=== PATIENT | female | born 1980 | race African-American/Black ===

== ENCOUNTER 2018-09-21 18:22 | Inpatient (IN) ==
[2018-09-21 19:08] LABS: Basophils # 0.1 10*3/uL (0.0-0.2); Basophils % 0.5 % (0.0-0.8); Eosinophils # 0.4 10*3/uL (0.0-0.87); Eosinophils % 2.9 % (0.00-10.9); Hematocrit 37.1 VOL% (35.7-47.0); Hemoglobin 11.7 GM/DL (12.0-16.0); Immature Granulocytes % 0.6 %; Immature Granulocytes Absolute 0.08 #; Lymphocytes # 1.6 10*3/uL (1.4-4.0); Lymphocytes % 12.9 % (21.3-54.2); Mean Corpuscular HGB Conc 31.5 GM/DL (32-36); Mean Corpuscular Volume 93.9 FL (87-102); Mean Platelet Volume 10.9 FL (9.6-12.0); Monocytes % 16.2 % (1.7-12.7); Neutrophils % 66.9 % (38.7-73.9); Platelet Count 267 T/CUMM (130-400); Red Blood Count 3.95 MC/CUMM (3.8-5.5); White Blood Count 12.5 T/CUMM (4-12)
[2018-09-21] MEDS ORDERED: ONDANSETRON 4 MG/2 ML VIAL IV STA (19:08)
[2018-09-21] MEDS ORDERED: MORPHINE 4 MG/1 ML VIAL IV STA (19:08)
[2018-09-21 19:26] LABS: Bilirubin,Total 0.5 MG/DL (0.2-1.0); Calcium 9.5 MG/DL (8.5-10.1); Osmolality,Calculated 265.5 MOS/KG (273-304); Total Protein 8.6 G/DL (6.4-8.3)
[2018-09-21 19:42] LABS: Eosinophils 3 % (0-10); Lymphocytes 15 % (20-55); Segmented Neutrophils 69 % (50-85); Total Cells Counted 100
[2018-09-21 19:43] LABS: Anisocytosis 1+; Atypical Lymphocytes Few; Macrocytosis 1+; Microcytosis Slight; Platelet Estimate Normal; Polychromasia 1+
[2018-09-21] MEDS ORDERED: ONDANSETRON 4 MG/2 ML VIAL IV PRN (20:39)
[2018-09-21] MEDS ORDERED: DEXTROSE 50% 25 GM/50 ML VIAL IV PRN (20:39)
[2018-09-21] MEDS ORDERED: GLUCAGON 1 MG VIAL IM PRN (20:39)
[2018-09-21] MEDS: MORPHINE 4 MG/1 ML VIAL IV PRN (22:10)
[2018-09-21] MEDS: LABETALOL 200 MG TABLET PO SCH (22:13)
[2018-09-21] MEDS: APIXABAN 5 MG TABLET PO SCH (22:13)
[2018-09-21] MEDS: CYCLOBENZAPRINE 10 MG TABLET PO PRN (22:13)
[2018-09-21] MEDS: INSULIN REGULAR 100 UNIT/ML SUBCUT SCH (22:21)
[2018-09-22] MEDS: MORPHINE 4 MG/1 ML VIAL IV PRN ×5 (02:15→23:39)
[2018-09-22] MEDS: LEVOTHYROXINE 100 MCG TABLET PO SCH (05:06)
[2018-09-22 05:43] LABS: Basophils # 0.1 10*3/uL (0.0-0.2); Basophils % 0.4 % (0.0-0.8); Eosinophils # 0.4 10*3/uL (0.0-0.87); Eosinophils % 3.4 % (0.00-10.9); Hematocrit 33.7 VOL% (35.7-47.0); Hemoglobin 10.6 GM/DL (12.0-16.0); Immature Granulocytes % 0.6 %; Immature Granulocytes Absolute 0.08 #; Lymphocytes # 1.7 10*3/uL (1.4-4.0); Lymphocytes % 13.7 % (21.3-54.2); Mean Corpuscular HGB Conc 31.5 GM/DL (32-36); Mean Corpuscular Volume 93.4 FL (87-102); Mean Platelet Volume 11.3 FL (9.6-12.0); Monocytes % 17.2 % (1.7-12.7); Neutrophils % 64.7 % (38.7-73.9); Platelet Count 234 T/CUMM (130-400); Red Blood Count 3.61 MC/CUMM (3.8-5.5); Red Cell Distribution Width 14.1 % (9.3-17.3); White Blood Count 12.5 T/CUMM (4-12)
[2018-09-22 05:55] LABS: Alanine Aminotransferase < 9 U/L (13-56); Albumin 2.8 G/DL (3.4-5.0); Alkaline Phosphatase 146 U/L (45-117); Aspartate Amino Transferase 14 U/L (0-37); Blood Urea Nitrogen 5 MG/DL (7-18); Calcium 9.4 MG/DL (8.5-10.1); Glucose 148 MG/DL (74-106); Osmolality,Calculated 267.2 MOS/KG (273-304); Total Protein 7.7 G/DL (6.4-8.3)
[2018-09-22 06:54] LABS: Band Neutrophils 1 % (0-10); Eosinophils 2 % (0-10); Hypochromasia 2+; Lymphocytes 12 % (20-55); Platelet Estimate Normal; Segmented Neutrophils 67 % (50-85); Total Cells Counted 100
[2018-09-22] MEDS: INSULIN REGULAR 100 UNIT/ML SUBCUT SCH ×4 (09:16→20:56)
[2018-09-22] MEDS: PANTOPRAZOLE 40 MG TABLET PO SCH (09:16)
[2018-09-22] MEDS: APIXABAN 5 MG TABLET PO SCH ×2 (09:16→20:50)
[2018-09-22] MEDS: LABETALOL 200 MG TABLET PO SCH ×2 (09:16→20:50)
[2018-09-22] MEDS: cefTRIAXone 2,000 MG in SYRINGE 1 EACH IV SCH (14:10)
[2018-09-22] MEDS: AZITHROMYCIN 250 MG TABLET PO SCH (14:10)
[2018-09-23 05:42] LABS: Basophils % 0.2 % (0.0-0.8); Eosinophils # 0.3 10*3/uL (0.0-0.87); Eosinophils % 1.9 % (0.00-10.9); Hematocrit 31.8 VOL% (35.7-47.0); Hemoglobin 10.1 GM/DL (12.0-16.0); Immature Granulocytes % 0.7 %; Immature Granulocytes Absolute 0.09 #; Lymphocytes % 7.2 % (21.3-54.2); Mean Corpuscular HGB Conc 31.8 GM/DL (32-36); Mean Corpuscular Volume 93.3 FL (87-102); Mean Platelet Volume 11.6 FL (9.6-12.0); Monocytes % 17.8 % (1.7-12.7); Neutrophils % 72.2 % (38.7-73.9); Platelet Count 232 T/CUMM (130-400); Red Blood Count 3.41 MC/CUMM (3.8-5.5); Red Cell Distribution Width 14.1 % (9.3-17.3); White Blood Count 13.2 T/CUMM (4-12)
[2018-09-23 05:43] LABS: Basophils # 0.1 10*3/uL (0.0-0.2); Basophils % 0.4 % (0.0-0.8); Eosinophils # 0.3 10*3/uL (0.0-0.87); Hematocrit 32.2 VOL% (35.7-47.0); Hemoglobin 9.9 GM/DL (12.0-16.0); Immature Granulocytes % 0.6 %; Immature Granulocytes Absolute 0.08 #; Lymphocytes % 7.3 % (21.3-54.2); Mean Corpuscular HGB Conc 30.7 GM/DL (32-36); Mean Corpuscular Volume 95.3 FL (87-102); Mean Platelet Volume 11.3 FL (9.6-12.0); Monocytes % 17.5 % (1.7-12.7); Neutrophils % 72.2 % (38.7-73.9); Platelet Count 225 T/CUMM (130-400); Red Blood Count 3.38 MC/CUMM (3.8-5.5); White Blood Count 13.2 T/CUMM (4-12)
[2018-09-23 06:13] LABS: % Iron Saturation 16.1 % (18-50); Ferritin 366.6 ng/ml (8-252)
[2018-09-23 06:17] LABS: Band Neutrophils 1 % (0-10); Eosinophils 1 % (0-10); Lymphocytes 5 % (20-55); Platelet Estimate Normal; Segmented Neutrophils 74 % (50-85); Total Cells Counted 100
[2018-09-23 06:19] LABS: Eosinophils 4 % (0-10); Hypochromasia Slight; Lymphocytes 8 % (20-55); Platelet Estimate Normal; Segmented Neutrophils 72 % (50-85); Total Cells Counted 100
[2018-09-23 06:24] LABS: Calcium 9.1 MG/DL (8.5-10.1); Osmolality,Calculated 263.5 MOS/KG (273-304)
[2018-09-23] MEDS: LEVOTHYROXINE 100 MCG TABLET PO SCH (06:50)
[2018-09-23 06:59] LABS: Sedimentation Rate-Westergren 110 MM/HR (0-20)
[2018-09-23] MEDS: APIXABAN 5 MG TABLET PO SCH ×2 (08:41→21:58)
[2018-09-23] MEDS: PANTOPRAZOLE 40 MG TABLET PO SCH (08:41)
[2018-09-23] MEDS: LABETALOL 200 MG TABLET PO SCH ×2 (08:41→21:58)
[2018-09-23] MEDS: INSULIN REGULAR 100 UNIT/ML SUBCUT SCH ×4 (08:42→22:12)
[2018-09-23] MEDS: AZITHROMYCIN 250 MG TABLET PO SCH (08:42)
[2018-09-23] MEDS: CYCLOBENZAPRINE 10 MG TABLET PO PRN (08:44)
[2018-09-23 12:03] LABS: Folate 5.7 NG/ML (5.4-24.0); Vitamin B12 416 PG/ML (211-911)
[2018-09-23] MEDS: cefTRIAXone 2,000 MG in SYRINGE 1 EACH IV SCH (14:33)
[2018-09-24] MEDS: LEVOTHYROXINE 100 MCG TABLET PO SCH (05:10)
[2018-09-24 06:24] LABS: Basophils # 0.1 10*3/uL (0.0-0.2); Basophils % 0.4 % (0.0-0.8); Eosinophils # 0.4 10*3/uL (0.0-0.87); Eosinophils % 3.2 % (0.00-10.9); Hematocrit 30.2 VOL% (35.7-47.0); Hemoglobin 9.5 GM/DL (12.0-16.0); Immature Granulocytes % 0.7 %; Immature Granulocytes Absolute 0.08 #; Lymphocytes # 0.9 10*3/uL (1.4-4.0); Lymphocytes % 7.4 % (21.3-54.2); Mean Corpuscular HGB Conc 31.5 GM/DL (32-36); Mean Corpuscular Volume 93.2 FL (87-102); Mean Platelet Volume 11.7 FL (9.6-12.0); Monocytes % 15.7 % (1.7-12.7); Neutrophils % 72.6 % (38.7-73.9); Platelet Count 227 T/CUMM (130-400); Red Blood Count 3.24 MC/CUMM (3.8-5.5); Red Cell Distribution Width 14.1 % (9.3-17.3); White Blood Count 12.3 T/CUMM (4-12)
[2018-09-24 08:27] LABS: Folate 7.1 NG/ML (5.4-24.0); Vitamin B12 361 PG/ML (211-911)
[2018-09-24 08:51] LABS: Sedimentation Rate-Westergren 115 MM/HR (0-20)
[2018-09-24] MEDS: LABETALOL 200 MG TABLET PO SCH (09:15)
[2018-09-24] MEDS: INSULIN REGULAR 100 UNIT/ML SUBCUT SCH ×4 (09:15→21:56)
[2018-09-24] MEDS: PANTOPRAZOLE 40 MG TABLET PO SCH (09:15)
[2018-09-24] MEDS: APIXABAN 5 MG TABLET PO SCH ×2 (09:16→20:33)
[2018-09-24] MEDS: AZITHROMYCIN 250 MG TABLET PO SCH (09:16)
[2018-09-24 09:56] LABS: Band Neutrophils 1 % (0-10); Eosinophils 3 % (0-10); Lymphocytes 8 % (20-55); Segmented Neutrophils 76 % (50-85); Total Cells Counted 100
[2018-09-24 10:01] LABS: Hypochromasia Slight; Platelet Estimate Normal; Polychromasia Slight
[2018-09-24 10:38] LABS: Amylase 15 U/L (25-115)
[2018-09-24] MEDS: cefTRIAXone 2,000 MG in SYRINGE 1 EACH IV SCH (14:17)
[2018-09-24] MEDS: ACETAMINOPHEN 325 MG TABLET PO PRN (15:23)
[2018-09-24] MEDS: PIPERACILLIN/TAZOBACTAM 3,375 MG in SODIUM CHLORIDE 0.9% 100 ML IV SCH (17:48)
[2018-09-24] MEDS: VANCOMYCIN INJ 750 MG in SODIUM CHLORIDE 0.9% 250 ML IV SCH (22:05)
[2018-09-25 01:01] LABS: Apearance,Urine CLEAR (Clear); Bilirubin,Urine Negative (Negative); Blood, Urine Large mg/dL (Negative); Glucose,Urine (UA) 150 mg/dL (Negative); Ketones,Urine 5 mg/dL (Negative); Nitrite,Urine Negative (Negative); Protein,Urine 30 MG/DL; RBC,Urine 1724 /HPF (0-4); Urine Color Red (Yellow); Urine Specific Gravity 1.015 (1.001-1.035); Urine Urobilinogen < 2.0 EU/DL (0.2-1.0); WBC,Urine 12 /HPF (0-6)
[2018-09-25] MEDS: PIPERACILLIN/TAZOBACTAM 3,375 MG in SODIUM CHLORIDE 0.9% 100 ML IV SCH ×3 (02:00→17:24)
[2018-09-25] MEDS: LEVOTHYROXINE 100 MCG TABLET PO SCH (05:21)
[2018-09-25 05:22] LABS: Basophils % 0.3 % (0.0-0.8); Eosinophils # 0.4 10*3/uL (0.0-0.87); Eosinophils % 3.9 % (0.00-10.9); Hematocrit 27.9 VOL% (35.7-47.0); Hemoglobin 9.1 GM/DL (12.0-16.0); Immature Granulocytes % 0.4 %; Immature Granulocytes Absolute 0.05 #; Lymphocytes # 1.1 10*3/uL (1.4-4.0); Lymphocytes % 10.2 % (21.3-54.2); Mean Corpuscular HGB Conc 32.6 GM/DL (32-36); Mean Corpuscular Volume 91.5 FL (87-102); Mean Platelet Volume 11.6 FL (9.6-12.0); Neutrophils % 69.2 % (38.7-73.9); Platelet Count 266 T/CUMM (130-400); Red Blood Count 3.05 MC/CUMM (3.8-5.5); White Blood Count 11.1 T/CUMM (4-12)
[2018-09-25] MEDS: VANCOMYCIN INJ 750 MG in SODIUM CHLORIDE 0.9% 250 ML IV SCH ×3 (05:22→21:39)
[2018-09-25 05:57] LABS: Anisocytosis 1+; Band Neutrophils 2 % (0-10); Eosinophils 3 % (0-10); Hypochromasia 1+; Lymphocytes 7 % (20-55); Microcytosis 1+; Platelet Estimate Adequate; Segmented Neutrophils 81 % (50-85); Total Cells Counted 100
[2018-09-25] MEDS: INSULIN REGULAR 100 UNIT/ML SUBCUT SCH ×4 (07:46→21:38)
[2018-09-25] MEDS: APIXABAN 5 MG TABLET PO SCH ×2 (08:33→21:38)
[2018-09-25] MEDS: AZITHROMYCIN 250 MG TABLET PO SCH (08:33)
[2018-09-25] MEDS: PANTOPRAZOLE 40 MG TABLET PO SCH (08:33)
[2018-09-25] MEDS: MORPHINE 4 MG/1 ML VIAL IV PRN (19:35)
[2018-09-26] MEDS: PIPERACILLIN/TAZOBACTAM 3,375 MG in SODIUM CHLORIDE 0.9% 100 ML IV SCH ×3 (01:06→17:36)
[2018-09-26 05:41] LABS: Basophils # 0.1 10*3/uL (0.0-0.2); Basophils % 0.6 % (0.0-0.8); Eosinophils # 0.6 10*3/uL (0.0-0.87); Eosinophils % 6.1 % (0.00-10.9); Hematocrit 27.2 VOL% (35.7-47.0); Hemoglobin 8.7 GM/DL (12.0-16.0); Immature Granulocytes % 0.6 %; Immature Granulocytes Absolute 0.06 #; Lymphocytes # 1.3 10*3/uL (1.4-4.0); Lymphocytes % 13.7 % (21.3-54.2); Mean Corpuscular Volume 91.9 FL (87-102); Mean Platelet Volume 11.1 FL (9.6-12.0); Monocytes % 15.2 % (1.7-12.7); Neutrophils % 63.8 % (38.7-73.9); Platelet Count 277 T/CUMM (130-400); Red Blood Count 2.96 MC/CUMM (3.8-5.5); Red Cell Distribution Width 13.8 % (9.3-17.3); White Blood Count 9.3 T/CUMM (4-12)
[2018-09-26] MEDS: LEVOTHYROXINE 100 MCG TABLET PO SCH (05:49)
[2018-09-26] MEDS ORDERED: VANCOMYCIN INJ 1,000 MG in SODIUM CHLORIDE 0.9% 250 ML IV ONE (06:00)
[2018-09-26] MEDS: MORPHINE 4 MG/1 ML VIAL IV PRN ×4 (06:32→23:25)
[2018-09-26] MEDS: INSULIN REGULAR 100 UNIT/ML SUBCUT SCH ×4 (08:00→20:51)
[2018-09-26] MEDS: PANTOPRAZOLE 40 MG TABLET PO SCH (10:46)
[2018-09-26] MEDS: AZITHROMYCIN 250 MG TABLET PO SCH (10:46)
[2018-09-26] MEDS: APIXABAN 5 MG TABLET PO SCH ×2 (10:46→20:56)
[2018-09-26] MEDS ORDERED: AZITHROMYCIN INJ 500 MG in SODIUM CHLORIDE 0.9% 250 ML IV SCH (12:00)
[2018-09-26] MEDS: VANCOMYCIN INJ 750 MG in SODIUM CHLORIDE 0.9% 250 ML IV SCH (19:15)
[2018-09-27] MEDS: PIPERACILLIN/TAZOBACTAM 3,375 MG in SODIUM CHLORIDE 0.9% 100 ML IV SCH ×3 (01:28→16:44)
[2018-09-27 05:06] LABS: Basophils # 0.1 10*3/uL (0.0-0.2); Basophils % 0.6 % (0.0-0.8); Eosinophils # 0.6 10*3/uL (0.0-0.87); Eosinophils % 6.9 % (0.00-10.9); Hematocrit 27.6 VOL% (35.7-47.0); Hemoglobin 8.5 GM/DL (12.0-16.0); Immature Granulocytes % 0.5 %; Immature Granulocytes Absolute 0.04 #; Lymphocytes # 1.6 10*3/uL (1.4-4.0); Lymphocytes % 19.2 % (21.3-54.2); Mean Corpuscular HGB Conc 30.8 GM/DL (32-36); Mean Corpuscular Volume 93.9 FL (87-102); Mean Platelet Volume 10.9 FL (9.6-12.0); Monocytes % 15.1 % (1.7-12.7); Neutrophils % 57.7 % (38.7-73.9); Platelet Count 306 T/CUMM (130-400); Red Blood Count 2.94 MC/CUMM (3.8-5.5); Red Cell Distribution Width 13.8 % (9.3-17.3); White Blood Count 8.6 T/CUMM (4-12)
[2018-09-27] MEDS: LEVOTHYROXINE 100 MCG TABLET PO SCH (05:07)
[2018-09-27] MEDS: VANCOMYCIN INJ 750 MG in SODIUM CHLORIDE 0.9% 250 ML IV SCH ×3 (05:07→20:53)
[2018-09-27] MEDS: INSULIN REGULAR 100 UNIT/ML SUBCUT SCH ×4 (07:49→19:59)
[2018-09-27] MEDS: APIXABAN 5 MG TABLET PO SCH ×2 (08:12→20:18)
[2018-09-27] MEDS: AZITHROMYCIN 250 MG TABLET PO SCH (08:12)
[2018-09-27] MEDS: PANTOPRAZOLE 40 MG TABLET PO SCH (08:12)
[2018-09-27] MEDS: MORPHINE 4 MG/1 ML VIAL IV PRN ×4 (08:23→22:55)
[2018-09-27 10:33] LABS: Hemoglobin A1 (Alkaline) 97.8 % (96.5-98.5); Hemoglobin A2 (Alkaline) 2.2 % (1.5-3.5)
[2018-09-27 10:33] LABS: Hemoglobin A1 (Alkaline) 97.8 % (96.5-98.5); Hemoglobin A2 (Alkaline) 2.2 % (1.5-3.5)
[2018-09-27] MEDS: ACETAMINOPHEN 325 MG TABLET PO PRN (20:18)
[2018-09-28] MEDS: PIPERACILLIN/TAZOBACTAM 3,375 MG in SODIUM CHLORIDE 0.9% 100 ML IV SCH ×3 (00:38→17:17)
[2018-09-28 05:05] LABS: Basophils # 0.1 10*3/uL (0.0-0.2); Basophils % 0.6 % (0.0-0.8); Eosinophils # 0.8 10*3/uL (0.0-0.87); Eosinophils % 8.7 % (0.00-10.9); Hematocrit 27.6 VOL% (35.7-47.0); Hemoglobin 8.5 GM/DL (12.0-16.0); Immature Granulocytes % 0.8 %; Immature Granulocytes Absolute 0.07 #; Lymphocytes # 1.4 10*3/uL (1.4-4.0); Lymphocytes % 15.7 % (21.3-54.2); Mean Corpuscular HGB Conc 30.8 GM/DL (32-36); Mean Corpuscular Volume 94.2 FL (87-102); Mean Platelet Volume 10.7 FL (9.6-12.0); Monocytes % 13.2 % (1.7-12.7); Platelet Count 330 T/CUMM (130-400); Red Blood Count 2.93 MC/CUMM (3.8-5.5); Red Cell Distribution Width 13.6 % (9.3-17.3); White Blood Count 8.6 T/CUMM (4-12)
[2018-09-28] MEDS: LEVOTHYROXINE 100 MCG TABLET PO SCH (05:26)
[2018-09-28] MEDS: VANCOMYCIN INJ 750 MG in SODIUM CHLORIDE 0.9% 250 ML IV SCH ×2 (05:26→12:27)
[2018-09-28 05:28] LABS: Blood Urea Nitrogen < 1 MG/DL (7-18); Calcium 8.9 MG/DL (8.5-10.1); Glucose 140 MG/DL (74-106); Osmolality,Calculated 278.6 MOS/KG (273-304)
[2018-09-28] MEDS: POTASSIUM CHLORIDE RIDER 10 MEQ in PREMIX 1 EACH IV SCH ×3 (07:53→12:26)
[2018-09-28] MEDS: INSULIN REGULAR 100 UNIT/ML SUBCUT SCH ×4 (07:57→20:49)
[2018-09-28] MEDS: PANTOPRAZOLE 40 MG TABLET PO SCH (07:59)
[2018-09-28] MEDS: AZITHROMYCIN 250 MG TABLET PO SCH (07:59)
[2018-09-28] MEDS: APIXABAN 5 MG TABLET PO SCH ×2 (07:59→20:48)
[2018-09-28] MEDS: MORPHINE 4 MG/1 ML VIAL IV PRN ×2 (09:47→20:50)
[2018-09-28] MEDS: POTASSIUM CHLORIDE 20 MEQ TABLET PO PRN ×3 (17:15→23:08)
[2018-09-29] MEDS: PIPERACILLIN/TAZOBACTAM 3,375 MG in SODIUM CHLORIDE 0.9% 100 ML IV SCH ×3 (00:39→16:55)
[2018-09-29] MEDS: POTASSIUM CHLORIDE 20 MEQ TABLET PO PRN ×2 (03:30→13:50)
[2018-09-29] MEDS: LEVOTHYROXINE 100 MCG TABLET PO SCH (05:21)
[2018-09-29 08:42] LABS: Basophils # 0.1 10*3/uL (0.0-0.2); Basophils % 0.5 % (0.0-0.8); Eosinophils # 0.6 10*3/uL (0.0-0.87); Eosinophils % 6.2 % (0.00-10.9); Hematocrit 29.5 VOL% (35.7-47.0); Hemoglobin 9.4 GM/DL (12.0-16.0); Immature Granulocytes % 0.6 %; Immature Granulocytes Absolute 0.06 #; Lymphocytes # 1.3 10*3/uL (1.4-4.0); Lymphocytes % 13.2 % (21.3-54.2); Mean Corpuscular HGB Conc 31.9 GM/DL (32-36); Mean Corpuscular Volume 93.7 FL (87-102); Mean Platelet Volume 10.7 FL (9.6-12.0); Monocytes % 10.7 % (1.7-12.7); Neutrophils % 68.8 % (38.7-73.9); Platelet Count 427 T/CUMM (130-400); Red Blood Count 3.15 MC/CUMM (3.8-5.5); Red Cell Distribution Width 13.7 % (9.3-17.3); White Blood Count 9.8 T/CUMM (4-12)
[2018-09-29] MEDS: APIXABAN 5 MG TABLET PO SCH ×2 (08:51→22:08)
[2018-09-29] MEDS: PANTOPRAZOLE 40 MG TABLET PO SCH (08:51)
[2018-09-29] MEDS: AZITHROMYCIN 250 MG TABLET PO SCH (08:51)
[2018-09-29 09:06] LABS: Alanine Aminotransferase 15 U/L (13-56); Albumin 2.2 G/DL (3.4-5.0); Alkaline Phosphatase 137 U/L (45-117); Aspartate Amino Transferase 16 U/L (0-37); Blood Urea Nitrogen < 1 MG/DL (7-18); Glucose 110 MG/DL (74-106); Osmolality,Calculated 275.8 MOS/KG (273-304); Total Protein 7.5 G/DL (6.4-8.3)
[2018-09-29] MEDS: CYCLOBENZAPRINE 10 MG TABLET PO PRN ×2 (09:16→22:07)
[2018-09-29] MEDS: INSULIN REGULAR 100 UNIT/ML SUBCUT SCH ×4 (09:34→22:09)
[2018-09-30] MEDS: PIPERACILLIN/TAZOBACTAM 3,375 MG in SODIUM CHLORIDE 0.9% 100 ML IV SCH ×2 (01:21→08:52)
[2018-09-30] MEDS: LEVOTHYROXINE 100 MCG TABLET PO SCH (05:22)
[2018-09-30] MEDS: INSULIN REGULAR 100 UNIT/ML SUBCUT SCH ×2 (07:32→11:14)
[2018-09-30 08:00] LABS: Basophils # 0.1 10*3/uL (0.0-0.2); Basophils % 0.5 % (0.0-0.8); Eosinophils # 0.6 10*3/uL (0.0-0.87); Eosinophils % 5.9 % (0.00-10.9); Hematocrit 28.4 VOL% (35.7-47.0); Hemoglobin 8.9 GM/DL (12.0-16.0); Immature Granulocytes % 0.9 %; Lymphocytes # 1.3 10*3/uL (1.4-4.0); Lymphocytes % 12.1 % (21.3-54.2); Mean Corpuscular HGB Conc 31.3 GM/DL (32-36); Mean Corpuscular Volume 93.1 FL (87-102); Mean Platelet Volume 10.9 FL (9.6-12.0); Monocytes % 10.5 % (1.7-12.7); Neutrophils % 70.1 % (38.7-73.9); Platelet Count 412 T/CUMM (130-400); Red Blood Count 3.05 MC/CUMM (3.8-5.5); Red Cell Distribution Width 13.8 % (9.3-17.3); White Blood Count 10.9 T/CUMM (4-12)
[2018-09-30 08:04] LABS: Alanine Aminotransferase 13 U/L (13-56); Albumin 2.4 G/DL (3.4-5.0); Alkaline Phosphatase 128 U/L (45-117); Aspartate Amino Transferase 13 U/L (0-37); Bilirubin,Total < 0.39 MG/DL (0.2-1.0); Blood Urea Nitrogen < 1 MG/DL (7-18); Calcium 9.3 MG/DL (8.5-10.1); Glucose 138 MG/DL (74-106); Osmolality,Calculated 274.9 MOS/KG (273-304); Total Protein 7.3 G/DL (6.4-8.3)
[2018-09-30] MEDS: PANTOPRAZOLE 40 MG TABLET PO SCH (08:53)
[2018-09-30] MEDS: APIXABAN 5 MG TABLET PO SCH (08:53)
[2018-09-30 15:26] LABS: Immunoglobulin A 549 MG/DL (70-400); Immunoglobulin G 1520 MG/DL (700-1600); Immunoglobulin M 179 MG/DL (40-230)
[2018-09-30 15:31] LABS: Parathyroid Hormone Intact 55.1 PG/ML (18.4-80.1)
[2018-09-30] MEDS: CYCLOBENZAPRINE 10 MG TABLET PO PRN (15:41)
[2018-09-30 17:01] LABS: DRVVT Screen Ratio 3.4 ratio (0.0 - 1.1); INR 2.3
[2018-09-30 17:10] VITALS: BP 130/90
[2018-10-01 06:05] LABS: Immunoglobulin A (Chem) 549 MG/DL (70-400); Immunoglobulin G (Chem) 1520 MG/DL (700-1600); Immunoglobulin M (Chem) 179 MG/DL (40-230)
[2018-10-01 06:12] LABS: Total Protein (Chem) 8.1 G/DL (6.4-8.3)
[2018-10-01 09:31] LABS: Albumin (SPE) 3.4 G/DL (3.2-5.3); Albumin (SPE) Rel % 42.5 %; Alpha 1 (SPE) 0.5 G/DL (0.1-0.4); Alpha 1 (SPE) Rel % 5.9 %; Alpha 2 (SPE) 1.4 G/DL (0.4-1.0); Alpha 2 (SPE) Rel % 17.8 %; Beta (SPE) 0.9 G/DL (0.5-1.1); Beta (SPE) Rel % 11.1 %; Gamma (SPE) 1.8 G/DL (0.7-1.7); Gamma (SPE) Rel % 22.7 %
[2018-10-14 10:19] LABS: DRVVT Mix Ratio (Mayo Reflex) 1.8 ratio (0.0 - 1.1); PT Mix 1:1 (Mayo Reflex) 16.3 sec; Reptilase Time, P 22 sec (14 - 23); Thrombin Time (Bovine), P 30 sec (15 - 23)
== END 2018-09-30 16:40 | disposition home or self-care (01) | DRG 175 ==
LOC: N.ED 18:22 → N.5E 20:39 → SUATTDRO 20:39 → N.5E 21:49
PROVIDERS: ADMIT Internal Medicine; ATTEND Internal Medicine

== ENCOUNTER 2020-02-01 16:22 | Inpatient (IN) ==
[2020-02-01 18:50] LABS: Basophils # 0.1 10*3/uL (0.0-0.2); Basophils % 0.2 % (0.0-0.8); Hematocrit 41.6 VOL% (35.7-47.0); Hemoglobin 14.2 GM/DL (12.0-16.0); Immature Granulocytes % 4.3 %; Immature Granulocytes Absolute 0.95 #; Lymphocytes # 0.8 10*3/uL (1.4-4.0); Lymphocytes % 3.8 % (21.3-54.2); Mean Corpuscular HGB Conc 34.1 GM/DL (32-36); Mean Platelet Volume 12.2 FL (9.6-12.0); Monocytes % 13.3 % (1.7-12.7); Neutrophils % 78.4 % (38.7-73.9); Platelet Count 364 T/CUMM (130-400); Red Blood Count 4.16 MC/CUMM (3.8-5.5); Red Cell Distribution Width 12.5 % (9.3-17.3); White Blood Count 22.1 T/CUMM (4-12)
[2020-02-01] MEDS ORDERED: LEVOFLOXACIN INJ 500 MG in PREMIX 1 EACH IV STA (19:11)
[2020-02-01] MEDS ORDERED: SODIUM CHLORIDE 0.9% 1,500 ML IV STA (19:11)
[2020-02-01 19:13] LABS: Band Neutrophils 11 % (0-10); Lymphocytes 2 % (20-55); Metamyelocytes 1 %; Segmented Neutrophils 74 % (50-85); Total Cells Counted 100
[2020-02-01 19:14] LABS: Platelet Estimate Adequate
[2020-02-01 19:22] LABS: Albumin 2.4 G/DL (3.4-5.0); Bilirubin,Total 1.3 MG/DL (0.2-1.0); Calcium 10.7 MG/DL (8.5-10.1); Osmolality,Calculated 269.2 MOS/KG (273-304); Total Protein 9.5 G/DL (6.4-8.3)
[2020-02-01 19:32] LABS: Ferritin 875.2 ng/ml (8-252)
[2020-02-01] MEDS ORDERED: ONDANSETRON 4 MG/2 ML VIAL IV STA (19:40)
[2020-02-01 20:24] LABS: ABG Base Excess -16.4 MMOL/L (-2.5-2.5); ABG HCO3 12.4 MMOL/L (20-26); ABG Oxygen Saturation 98.1 % (95-100); ABG PH 7.375 (7.35-7.45); ABG TCO2 6.3 MMOL/L (23-27); Allen Test Positive; Pt O2 Delivery Device Room Air
[2020-02-01 20:26] LABS: ABG PCO2 12.3 MM HG (35-48)
[2020-02-01] MEDS ORDERED: DEXT 5% NACL 0.45% KCL 40 MEQ 40 MEQ/1,000 ML BAG IV SCH (20:30)
[2020-02-01 21:46] LABS: Bacteria,Urine Occasional /HPF (Few); Bilirubin,Urine Negative (Negative); Blood, Urine Small mg/dL (Negative); Glucose,Urine (UA) >=500 mg/dL (Negative); Ketones,Urine 80 mg/dL (Negative); Mucus,Urine Occasional /LPF (Occasional); Nitrite,Urine Negative (Negative); Protein,Urine Negative; RBC,Urine 1 /HPF (0-4); Squamous Epithelial Cell,Urine Occasional /HPF (0-10); Urine Appearance Slightly Hazy (Clear); Urine Color Yellow (Yellow); Urine Urobilinogen < 2.0 EU/DL (0.2-1.0)
[2020-02-01 21:48] LABS: Barbiturates Screen,Urine Negative (Negative); Benzodiazepines Screen,Urine Negative (Negative); Cannabinoid Screen,Urine Negative (Negative); Opiate Screen,Urine Negative (Negative); Phencyclidine Screen,Urine Negative (Negative)
[2020-02-02] MEDS ORDERED: NICOTINE 21 MG/24 HR PATCH TRANSDERM PRN (03:05)
[2020-02-02] MEDS ORDERED: INSULIN REGULAR 100 UNIT/ML IV ONE (03:05)
[2020-02-02] MEDS ORDERED: SODIUM BICARB INJ 100 MEQ in STERILE WATER INJ 400 ML IV PRN (03:05)
[2020-02-02] MEDS ORDERED: SODIUM CHLORIDE 0.9% IV PRN (03:05)
[2020-02-02] MEDS ORDERED: ALBUTEROL 2.5 MG/3 ML NEB RESP TX PRN ×2 (03:05→06:00)
[2020-02-02] MEDS ORDERED: hydrALAZINE 20 MG/1 ML VIAL IV PRN (03:05)
[2020-02-02] MEDS ORDERED: MAGNESIUM SULF RIDER 4 GM in PREMIX 1 EACH IV PRN (03:05)
[2020-02-02] MEDS ORDERED: SODIUM CHLORIDE 0.9% 1,000 ML IV ONE (03:05)
[2020-02-02] MEDS ORDERED: SODIUM PHOSPHATE IV PRN (03:05)
[2020-02-02] MEDS ORDERED: DEXTROSE 50% 25 GM/50 ML VIAL IV PRN ×2 (03:05→23:18)
[2020-02-02 03:21] LABS: ABG Base Excess -18.8 MMOL/L (-2.5-2.5); ABG HCO3 10.9 MMOL/L (20-26); ABG Oxygen Saturation 98.1 % (95-100); ABG PH 7.289 (7.35-7.45); ABG TCO2 5.9 MMOL/L (23-27); Allen Test Positive
[2020-02-02] MEDS ORDERED: INSULIN NPH 100 UNIT/ML SUBCUT ONE (03:26)
[2020-02-02] MEDS ORDERED: INSULIN REGULAR 100 UNIT/ML ONE (03:28)
[2020-02-02 03:29] LABS: ABG PCO2 13.7 MM HG (35-48)
[2020-02-02] MEDS: MEROPENEM 500 MG in SODIUM CHLORIDE 0.9% 100 ML IV SCH ×4 (03:38→22:26)
[2020-02-02] MEDS: MORPHINE 4 MG/1 ML VIAL IV PRN ×2 (04:26→10:24)
[2020-02-02] MEDS: ONDANSETRON 4 MG/2 ML VIAL IV PRN ×3 (04:27→22:15)
[2020-02-02] MEDS ORDERED: POTASSIUM CHLORIDE 20 MEQ TABLET PO ONE ×2 (04:41→07:19)
[2020-02-02] MEDS: VANCOMYCIN INJ 1,000 MG in SODIUM CHLORIDE 0.9% 250 ML IV SCH ×2 (04:52→16:18)
[2020-02-02] MEDS: INSULIN REGULAR DRIP 100 ML IV SCH ×2 (04:52→16:37)
[2020-02-02 05:22] LABS: Bacteria,Urine Occasional /HPF (Few); Bilirubin,Urine Negative (Negative); Blood, Urine Small mg/dL (Negative); Glucose,Urine (UA) >=500 mg/dL (Negative); Ketones,Urine 80 mg/dL (Negative); Mucus,Urine Occasional /LPF (Occasional); Nitrite,Urine Negative (Negative); Protein,Urine Negative; Squamous Epithelial Cell,Urine Occasional /HPF (0-10); Urine Appearance Slightly Hazy (Clear); Urine Color Yellow (Yellow); Urine Urobilinogen < 2.0 EU/DL (0.2-1.0)
[2020-02-02 05:36] LABS: Basophils % 0.2 % (0.0-0.8); Hematocrit 33.2 VOL% (35.7-47.0); Hemoglobin 11.2 GM/DL (12.0-16.0); Immature Granulocytes % 1.3 %; Immature Granulocytes Absolute 0.28 #; Lymphocytes # 0.7 10*3/uL (1.4-4.0); Lymphocytes % 3.1 % (21.3-54.2); Mean Corpuscular HGB Conc 33.7 GM/DL (32-36); Mean Corpuscular Volume 100.3 FL (87-102); Mean Platelet Volume 12.2 FL (9.6-12.0); Monocytes % 8.5 % (1.7-12.7); Neutrophils % 86.9 % (38.7-73.9); Platelet Count 313 T/CUMM (130-400); Red Blood Count 3.31 MC/CUMM (3.8-5.5); Red Cell Distribution Width 12.5 % (9.3-17.3); White Blood Count 21.8 T/CUMM (4-12)
[2020-02-02] MEDS ORDERED: LACTATED RINGERS 1,000 ML IV ONE (06:00)
[2020-02-02 06:06] LABS: Band Neutrophils 14 % (0-10); Hypochromasia Slight; Lymphocytes 4 % (20-55); Myelocytes 1 %; Platelet Estimate Adequate; Segmented Neutrophils 77 % (50-85); Total Cells Counted 100
[2020-02-02 06:40] LABS: HIV Antigen/Antibody Result Nonreactive (Nonreactive); Hepatitis B Core IgM Quant 0.11 Index; Hepatitis B Surface Ag Quant < 0.10 Index; Hepatitis B Surface Ag Result Negative (Negative); Hepatitis C Virus Ab Quant 0.07 Index; Hepatitis C Virus Ab Result Negative (Negative)
[2020-02-02] MEDS: SODIUM CHLORIDE 0.9% 1,000 ML IV SCH ×2 (06:51→08:51)
[2020-02-02 07:01] LABS: Albumin 1.9 G/DL (3.4-5.0); Calcium 8.8 MG/DL (8.5-10.1); Osmolality,Calculated 289.4 MOS/KG (273-304); Total Protein 7.6 G/DL (6.4-8.3)
[2020-02-02] MEDS: POTASSIUM CHLORIDE RIDER 10 MEQ in PREMIX 1 EACH IV PRN ×2 (07:17→08:10)
[2020-02-02] MEDS ORDERED: SODIUM CHLORIDE 0.9% 1,000 ML IV SCH (08:10)
[2020-02-02] MEDS ORDERED: MAGNESIUM SULF RIDER 4 GM in PREMIX 1 EACH IV ONE (08:45)
[2020-02-02] MEDS ORDERED: ENOXAPARIN 40 MG/0.4 ML SYRINGE SUBCUT SCH (09:00)
[2020-02-02] MEDS ORDERED: POTASSIUM PHOSPHATE 30 MMOL in SODIUM CHLORIDE 0.9% 250 ML IV ONE (09:00)
[2020-02-02] MEDS: DEXT 5% NACL 0.9% KCL 40 MEQ 40 MEQ/1,000 ML BAG IV SCH ×2 (09:10→12:42)
[2020-02-02] MEDS: POTASSIUM CHLORIDE RIDER 20 MEQ in PREMIX 1 EACH IV SCH ×7 (09:10→22:28)
[2020-02-02 10:40] LABS: Calcium 6.8 MG/DL (8.5-10.1)
[2020-02-02 11:16] LABS: Calcium 8.9 MG/DL (8.5-10.1); Osmolality,Calculated 296.7 MOS/KG (273-304)
[2020-02-02] MEDS ORDERED: SODIUM CHLOR 0.45% KCL 20 MEQ 20 MEQ/1,000 ML BAG IV SCH (12:00)
[2020-02-02 12:52] LABS: Calcium 8.8 MG/DL (8.5-10.1); Osmolality,Calculated 302.4 MOS/KG (273-304)
[2020-02-02] MEDS ORDERED: POTASSIUM CHLORIDE INJ 40 MEQ in SODIUM CHLORIDE 0.45% 1,000 ML IV SCH (13:00)
[2020-02-02] MEDS ORDERED: DEXT 5% NACL 0.9% KCL 40 MEQ 40 MEQ/1,000 ML BAG IV SCH (13:09)
[2020-02-02] MEDS ORDERED: DEXT 5% NACL 0.45% KCL 40 MEQ 40 MEQ/1,000 ML BAG IV SCH (13:30)
[2020-02-02 15:31] LABS: Calcium 9.1 MG/DL (8.5-10.1); Osmolality,Calculated 303.1 MOS/KG (273-304)
[2020-02-02 16:58] LABS: Calcium 9.2 MG/DL (8.5-10.1); Osmolality,Calculated 302.7 MOS/KG (273-304)
[2020-02-02 19:01] LABS: Calcium 9.2 MG/DL (8.5-10.1); Osmolality,Calculated 297.7 MOS/KG (273-304)
[2020-02-02] MEDS ORDERED: SODIUM CHLORIDE 0.45% 1,000 ML IV SCH (20:10)
[2020-02-02] MEDS ORDERED: GLUCAGON 1 MG VIAL IM PRN (23:18)
[2020-02-02] MEDS: DEXT 5% NACL 0.45% KCL 40 MEQ 40 MEQ/1,000 ML BAG IV SCH (23:24)
[2020-02-02] MEDS: INSULIN REGULAR 100 UNIT/ML SUBCUT SCH (23:28)
[2020-02-03] MEDS: MEROPENEM 500 MG in SODIUM CHLORIDE 0.9% 100 ML IV SCH ×4 (04:29→20:03)
[2020-02-03] MEDS: INSULIN REGULAR 100 UNIT/ML SUBCUT SCH ×5 (04:37→19:43)
[2020-02-03 04:44] LABS: Calcium 8.8 MG/DL (8.5-10.1); Osmolality,Calculated 306.1 MOS/KG (273-304)
[2020-02-03] MEDS: VANCOMYCIN INJ 1,000 MG in SODIUM CHLORIDE 0.9% 250 ML IV SCH ×2 (05:04→15:39)
[2020-02-03] MEDS: POTASSIUM CHLORIDE RIDER 20 MEQ in PREMIX 1 EACH IV PRN ×3 (05:42→20:27)
[2020-02-03] MEDS: DEXT 5% NACL 0.45% KCL 40 MEQ 40 MEQ/1,000 ML BAG IV SCH (08:30)
[2020-02-03] MEDS ORDERED: MIDAZOLAM 2 MG/2 ML VIAL ONE (09:54)
[2020-02-03] MEDS ORDERED: fentaNYL 100 MCG/2 ML VIAL ONE (09:54)
[2020-02-03] MEDS ORDERED: ACETAMINOPHEN 1,000 MG/100 ML VIAL IV ONE (10:11)
[2020-02-03] MEDS ORDERED: propofoL 200 MG/20 ML VIAL IV ONE (10:12)
[2020-02-03] MEDS ORDERED: ONDANSETRON 4 MG/2 ML VIAL ONE (10:12)
[2020-02-03] MEDS ORDERED: ROCURONIUM 100 MG/10 ML VIAL IV ONE (10:12)
[2020-02-03] MEDS ORDERED: LIDOCAINE 2% 5 ML VIAL ONE (10:12)
[2020-02-03] MEDS ORDERED: DEXAMETHASONE 4 MG/1 ML VIAL ONE (10:12)
[2020-02-03] MEDS ORDERED: KETOROLAC 30 MG/1 ML VIAL ONE (10:12)
[2020-02-03] MEDS ORDERED: SUGAMMADEX 200 MG/2 ML VIAL IV ONE (11:19)
[2020-02-03 12:24] LABS: Basophils % 0.1 % (0.0-0.8); Hematocrit 31.9 VOL% (35.7-47.0); Hemoglobin 11.1 GM/DL (12.0-16.0); Immature Granulocytes Absolute 1.62 #; Lymphocytes # 1.2 10*3/uL (1.4-4.0); Lymphocytes % 3.6 % (21.3-54.2); Mean Corpuscular HGB Conc 34.8 GM/DL (32-36); Mean Corpuscular Volume 96.7 FL (87-102); Mean Platelet Volume 11.9 FL (9.6-12.0); Monocytes % 7.1 % (1.7-12.7); Neutrophils % 84.2 % (38.7-73.9); Platelet Count 283 T/CUMM (130-400); Red Cell Distribution Width 12.8 % (9.3-17.3); White Blood Count 32.3 T/CUMM (4-12)
[2020-02-03] MEDS ORDERED: PHENYLEPHRINE 10 MG/1 ML VIAL IV ONE (12:42)
[2020-02-03] MEDS ORDERED: SEVOFLURANE 1 UNIT/15 MINUTE INH ONE (12:42)
[2020-02-03] MEDS: POTASSIUM CHLORIDE INJ 40 MEQ in SODIUM CHLORIDE 0.45% 1,000 ML IV SCH ×2 (13:00→21:56)
[2020-02-03] MEDS: oxyCODONE/ACETAMINOPHEN 5-325 MG TABLET PO PRN (13:03)
[2020-02-03 13:08] LABS: Anisocytosis 1+; Band Neutrophils 53 % (0-10); Lymphocytes 5 % (20-55); Metamyelocytes 4 %; Platelet Estimate Normal; Segmented Neutrophils 34 % (50-85); Total Cells Counted 100
[2020-02-03 13:09] LABS: Macrocytosis 1+
[2020-02-03] MEDS: KETOROLAC 10 MG TABLET PO SCH ×3 (13:11→19:43)
[2020-02-03 13:31] LABS: Calcium 8.9 MG/DL (8.5-10.1); Osmolality,Calculated 302.1 MOS/KG (273-304)
[2020-02-03] MEDS: MAGNESIUM SULF RIDER 2 GM in PREMIX 1 EACH IV PRN (15:10)
[2020-02-03] MEDS: MORPHINE 4 MG/1 ML VIAL IV PRN ×2 (15:39→21:22)
[2020-02-03] MEDS: ONDANSETRON 4 MG/2 ML VIAL IV PRN (21:22)
[2020-02-04] MEDS: POTASSIUM CHLORIDE RIDER 20 MEQ in PREMIX 1 EACH IV PRN ×2 (00:12→05:04)
[2020-02-04] MEDS: KETOROLAC 10 MG TABLET PO SCH ×4 (00:15→18:26)
[2020-02-04] MEDS: INSULIN REGULAR 100 UNIT/ML SUBCUT SCH ×5 (00:15→17:05)
[2020-02-04] MEDS: MEROPENEM 500 MG in SODIUM CHLORIDE 0.9% 100 ML IV SCH ×4 (03:34→21:35)
[2020-02-04] MEDS: VANCOMYCIN INJ 1,000 MG in SODIUM CHLORIDE 0.9% 250 ML IV SCH ×3 (04:56→21:35)
[2020-02-04] MEDS: POTASSIUM CHLORIDE INJ 40 MEQ in SODIUM CHLORIDE 0.45% 1,000 ML IV SCH ×3 (06:01→22:48)
[2020-02-04] MEDS: MORPHINE 4 MG/1 ML VIAL IV PRN (08:26)
[2020-02-04 13:06] LABS: Eosinophils % 0.2 % (0.00-10.9); Hematocrit 27.9 VOL% (35.7-47.0); Hemoglobin 9.6 GM/DL (12.0-16.0); Immature Granulocytes % 3.2 %; Immature Granulocytes Absolute 0.83 #; Lymphocytes # 1.4 10*3/uL (1.4-4.0); Lymphocytes % 5.3 % (21.3-54.2); Mean Corpuscular HGB Conc 34.4 GM/DL (32-36); Mean Corpuscular Volume 97.2 FL (87-102); Mean Platelet Volume 12.1 FL (9.6-12.0); Monocytes % 4.7 % (1.7-12.7); Neutrophils % 86.6 % (38.7-73.9); Platelet Count 217 T/CUMM (130-400); Red Blood Count 2.87 MC/CUMM (3.8-5.5); Red Cell Distribution Width 12.7 % (9.3-17.3); White Blood Count 26.2 T/CUMM (4-12)
[2020-02-04] MEDS: oxyCODONE/ACETAMINOPHEN 5-325 MG TABLET PO PRN ×2 (13:30→21:34)
[2020-02-04 13:33] LABS: Albumin 1.5 G/DL (3.4-5.0); Bilirubin,Total 0.7 MG/DL (0.2-1.0); Osmolality,Calculated 275.8 MOS/KG (273-304); Total Protein 6.1 G/DL (6.4-8.3)
[2020-02-04 13:34] LABS: Band Neutrophils 13 % (0-10); Lymphocytes 6 % (20-55); Platelet Estimate Normal; Poikilocytosis Slight; Segmented Neutrophils 79 % (50-85); Target Cells Slight; Total Cells Counted 100
[2020-02-04 13:35] LABS: Polychromasia Slight
[2020-02-05] MEDS: INSULIN REGULAR 100 UNIT/ML SUBCUT SCH ×6 (00:25→22:29)
[2020-02-05] MEDS: KETOROLAC 10 MG TABLET PO SCH ×4 (00:29→17:50)
[2020-02-05] MEDS: MEROPENEM 500 MG in SODIUM CHLORIDE 0.9% 100 ML IV SCH ×4 (03:16→22:30)
[2020-02-05] MEDS: VANCOMYCIN INJ 1,000 MG in SODIUM CHLORIDE 0.9% 250 ML IV SCH (05:17)
[2020-02-05] MEDS: oxyCODONE/ACETAMINOPHEN 5-325 MG TABLET PO PRN (05:49)
[2020-02-05] MEDS: POTASSIUM CHLORIDE INJ 40 MEQ in SODIUM CHLORIDE 0.45% 1,000 ML IV SCH ×2 (05:50→16:30)
[2020-02-05 06:13] LABS: Basophils # 0.2 10*3/uL (0.0-0.2); Basophils % 0.7 % (0.0-0.8); Eosinophils # 0.1 10*3/uL (0.0-0.87); Eosinophils % 0.3 % (0.00-10.9); Hematocrit 26.5 VOL% (35.7-47.0); Hemoglobin 9.3 GM/DL (12.0-16.0); Immature Granulocytes Absolute 1.29 #; Lymphocytes # 1.2 10*3/uL (1.4-4.0); Lymphocytes % 4.6 % (21.3-54.2); Mean Corpuscular HGB Conc 35.1 GM/DL (32-36); Mean Corpuscular Volume 97.1 FL (87-102); Mean Platelet Volume 12.4 FL (9.6-12.0); NRBC # 0.02 10*3/uL; Neutrophils % 83.4 % (38.7-73.9); Platelet Count 226 T/CUMM (130-400); Red Blood Count 2.73 MC/CUMM (3.8-5.5); Red Cell Distribution Width 12.7 % (9.3-17.3)
[2020-02-05 06:41] LABS: Osmolality,Calculated 281.4 MOS/KG (273-304)
[2020-02-05 07:09] LABS: Band Neutrophils 3 % (0-10); Lymphocytes 6 % (20-55); Segmented Neutrophils 87 % (50-85); Total Cells Counted 100
[2020-02-05 07:10] LABS: Hypochromasia 1+; Macrocytosis 1+
[2020-02-05 07:11] LABS: Platelet Estimate Normal; Target Cells Slight
[2020-02-05] MEDS: MAGNESIUM SULF RIDER 2 GM in PREMIX 1 EACH IV PRN (10:55)
[2020-02-05] MEDS: MORPHINE 4 MG/1 ML VIAL IV PRN (12:03)
[2020-02-05] MEDS: POTASSIUM CHLORIDE RIDER 20 MEQ in PREMIX 1 EACH IV PRN (17:50)
[2020-02-05] MEDS: INSULIN GLARGINE 100 UNIT/ML SUBCUT SCH (22:29)
[2020-02-05] MEDS: ENOXAPARIN 40 MG/0.4 ML SYRINGE SUBCUT SCH (22:30)
[2020-02-05] MEDS: VANCOMYCIN INJ 1,250 MG in SODIUM CHLORIDE 0.9% 250 ML IV SCH (22:30)
[2020-02-06] MEDS: POTASSIUM CHLORIDE INJ 40 MEQ in SODIUM CHLORIDE 0.45% 1,000 ML IV SCH ×6 (00:32→22:50)
[2020-02-06] MEDS: INSULIN REGULAR 100 UNIT/ML SUBCUT SCH ×6 (00:32→21:06)
[2020-02-06] MEDS: KETOROLAC 10 MG TABLET PO SCH ×5 (00:33→23:32)
[2020-02-06] MEDS: MEROPENEM 500 MG in SODIUM CHLORIDE 0.9% 100 ML IV SCH ×2 (03:36→09:08)
[2020-02-06] MEDS: POLYETHYLENE GLYCOL POWDER 17 GM PACK PO SCH (09:07)
[2020-02-06] MEDS: VANCOMYCIN INJ 1,250 MG in SODIUM CHLORIDE 0.9% 250 ML IV SCH (09:07)
[2020-02-06] MEDS: oxyCODONE/ACETAMINOPHEN 5-325 MG TABLET PO PRN (09:18)
[2020-02-06] MEDS ORDERED: cefTRIAXone 2,000 MG in SYRINGE 1 EACH IV SCH (14:00)
[2020-02-06] MEDS: MORPHINE 4 MG/1 ML VIAL IV PRN (15:13)
[2020-02-06] MEDS: FAMOTIDINE 20 MG TABLET PO SCH (21:05)
[2020-02-06] MEDS: ENOXAPARIN 40 MG/0.4 ML SYRINGE SUBCUT SCH (21:06)
[2020-02-06] MEDS: INSULIN GLARGINE 100 UNIT/ML SUBCUT SCH (21:06)
[2020-02-07] MEDS: oxyCODONE/ACETAMINOPHEN 5-325 MG TABLET PO PRN ×3 (00:06→20:27)
[2020-02-07] MEDS: KETOROLAC 10 MG TABLET PO SCH ×3 (05:54→17:59)
[2020-02-07] MEDS: LEVOTHYROXINE 100 MCG TABLET PO SCH (05:54)
[2020-02-07 06:05] LABS: Basophils # 0.1 10*3/uL (0.0-0.2); Basophils % 0.2 % (0.0-0.8); Eosinophils # 0.1 10*3/uL (0.0-0.87); Eosinophils % 0.3 % (0.00-10.9); Hematocrit 27.1 VOL% (35.7-47.0); Hemoglobin 8.8 GM/DL (12.0-16.0); Immature Granulocytes % 6.7 %; Immature Granulocytes Absolute 1.44 #; Lymphocytes % 9.4 % (21.3-54.2); Mean Corpuscular HGB Conc 32.5 GM/DL (32-36); Mean Corpuscular Volume 101.9 FL (87-102); Mean Platelet Volume 12.6 FL (9.6-12.0); Monocytes % 17.4 % (1.7-12.7); NRBC # 0.03 10*3/uL; Platelet Count 282 T/CUMM (130-400); Red Blood Count 2.66 MC/CUMM (3.8-5.5); Red Cell Distribution Width 13.5 % (9.3-17.3); White Blood Count 21.4 T/CUMM (4-12)
[2020-02-07 06:22] LABS: Calcium 8.2 MG/DL (8.5-10.1); Osmolality,Calculated 274.4 MOS/KG (273-304)
[2020-02-07 06:32] LABS: HDL Cholesterol 10 MG/DL (40-60); Triglycerides 56 MG/DL (2-150); VLDL CHOLESTEROL 11.2 MG/DL
[2020-02-07 06:34] LABS: Band Neutrophils 3 % (0-10); Hypochromasia 2+; Lymphocytes 13 % (20-55); Microcytosis 1+; Platelet Estimate Adequate; Segmented Neutrophils 68 % (50-85); Total Cells Counted 100
[2020-02-07] MEDS: INSULIN REGULAR 100 UNIT/ML SUBCUT SCH ×4 (07:51→22:00)
[2020-02-07] MEDS ORDERED: AMPICILLIN 500 MG CAPSULE PO SCH (09:00)
[2020-02-07] MEDS: POLYETHYLENE GLYCOL POWDER 17 GM PACK PO SCH (10:02)
[2020-02-07] MEDS: ASPIRIN EC 81 MG TABLET PO SCH (10:02)
[2020-02-07] MEDS: AMOXICILLIN 500 MG CAPSULE PO SCH ×3 (10:06→17:59)
[2020-02-07] MEDS: POTASSIUM CHLORIDE INJ 40 MEQ in SODIUM CHLORIDE 0.45% 1,000 ML IV SCH ×2 (11:07→22:19)
[2020-02-07] MEDS: FAMOTIDINE 20 MG TABLET PO SCH (20:27)
[2020-02-07] MEDS: ENOXAPARIN 40 MG/0.4 ML SYRINGE SUBCUT SCH (20:28)
[2020-02-07] MEDS: INSULIN GLARGINE 100 UNIT/ML SUBCUT SCH (22:19)
[2020-02-08] MEDS: KETOROLAC 10 MG TABLET PO SCH ×2 (00:50→05:13)
[2020-02-08] MEDS: oxyCODONE/ACETAMINOPHEN 5-325 MG TABLET PO PRN ×3 (03:39→18:40)
[2020-02-08] MEDS: POTASSIUM CHLORIDE INJ 40 MEQ in SODIUM CHLORIDE 0.45% 1,000 ML IV SCH ×4 (04:14→18:42)
[2020-02-08] MEDS: LEVOTHYROXINE 100 MCG TABLET PO SCH (06:06)
[2020-02-08 06:07] LABS: Basophils # 0.1 10*3/uL (0.0-0.2); Basophils % 0.6 % (0.0-0.8); Eosinophils # 0.1 10*3/uL (0.0-0.87); Eosinophils % 0.4 % (0.00-10.9); Hematocrit 26.1 VOL% (35.7-47.0); Hemoglobin 8.6 GM/DL (12.0-16.0); Immature Granulocytes % 5.1 %; Immature Granulocytes Absolute 1.24 #; Lymphocytes # 1.8 10*3/uL (1.4-4.0); Lymphocytes % 7.6 % (21.3-54.2); Mean Corpuscular Volume 101.6 FL (87-102); Mean Platelet Volume 12.2 FL (9.6-12.0); Monocytes % 15.1 % (1.7-12.7); NRBC # 0.02 10*3/uL; Neutrophils % 71.2 % (38.7-73.9); Platelet Count 343 T/CUMM (130-400); Red Blood Count 2.57 MC/CUMM (3.8-5.5); Red Cell Distribution Width 13.7 % (9.3-17.3); White Blood Count 24.3 T/CUMM (4-12)
[2020-02-08 06:24] LABS: Calcium 8.2 MG/DL (8.5-10.1); Osmolality,Calculated 272.7 MOS/KG (273-304)
[2020-02-08 06:35] LABS: Lymphocytes 3 % (20-55); Platelet Estimate Adequate; Segmented Neutrophils 86 % (50-85); Total Cells Counted 100
[2020-02-08 06:36] LABS: Hypochromasia 1+; Microcytosis Slight
[2020-02-08] MEDS: ASPIRIN EC 81 MG TABLET PO SCH (08:43)
[2020-02-08] MEDS: AMOXICILLIN 500 MG CAPSULE PO SCH ×3 (08:43→17:07)
[2020-02-08] MEDS: INSULIN REGULAR 100 UNIT/ML SUBCUT SCH ×4 (08:44→21:00)
[2020-02-08] MEDS: POLYETHYLENE GLYCOL POWDER 17 GM PACK PO SCH (08:44)
[2020-02-08] MEDS: INSULIN GLARGINE 100 UNIT/ML SUBCUT SCH (21:00)
[2020-02-08] MEDS: FAMOTIDINE 20 MG TABLET PO SCH (21:31)
[2020-02-08] MEDS: APIXABAN 5 MG TABLET PO SCH (21:32)
[2020-02-08] MEDS: MORPHINE 4 MG/1 ML VIAL IV PRN (21:33)
[2020-02-09] MEDS: POTASSIUM CHLORIDE INJ 40 MEQ in SODIUM CHLORIDE 0.45% 1,000 ML IV SCH ×3 (02:56→21:09)
[2020-02-09] MEDS: oxyCODONE/ACETAMINOPHEN 5-325 MG TABLET PO PRN ×3 (05:12→21:09)
[2020-02-09] MEDS: LEVOTHYROXINE 100 MCG TABLET PO SCH (05:38)
[2020-02-09 05:51] LABS: Basophils # 0.2 10*3/uL (0.0-0.2); Basophils % 0.5 % (0.0-0.8); Eosinophils # 0.1 10*3/uL (0.0-0.87); Eosinophils % 0.3 % (0.00-10.9); Hematocrit 26.8 VOL% (35.7-47.0); Immature Granulocytes % 3.9 %; Immature Granulocytes Absolute 1.21 #; Lymphocytes # 1.8 10*3/uL (1.4-4.0); Lymphocytes % 5.7 % (21.3-54.2); Mean Corpuscular HGB Conc 33.6 GM/DL (32-36); Mean Corpuscular Volume 100.8 FL (87-102); Mean Platelet Volume 11.8 FL (9.6-12.0); Monocytes % 11.9 % (1.7-12.7); Neutrophils % 77.7 % (38.7-73.9); Platelet Count 418 T/CUMM (130-400); Red Blood Count 2.66 MC/CUMM (3.8-5.5); Red Cell Distribution Width 14.4 % (9.3-17.3); White Blood Count 31.4 T/CUMM (4-12)
[2020-02-09 06:09] LABS: Calcium 8.5 MG/DL (8.5-10.1); Osmolality,Calculated 270.8 MOS/KG (273-304)
[2020-02-09 06:16] LABS: Band Neutrophils 1 % (0-10); Hypochromasia 1+; Lymphocytes 6 % (20-55); Microcytosis 1+; Platelet Estimate Adequate; Segmented Neutrophils 83 % (50-85); Total Cells Counted 100
[2020-02-09] MEDS: AMOXICILLIN 500 MG CAPSULE PO SCH ×3 (08:32→16:31)
[2020-02-09] MEDS: ASPIRIN EC 81 MG TABLET PO SCH (08:32)
[2020-02-09] MEDS: APIXABAN 5 MG TABLET PO SCH ×2 (08:32→21:08)
[2020-02-09] MEDS: POLYETHYLENE GLYCOL POWDER 17 GM PACK PO SCH (08:58)
[2020-02-09] MEDS: INSULIN REGULAR 100 UNIT/ML SUBCUT SCH ×4 (08:58→21:12)
[2020-02-09] MEDS: MENTHOL/ZINC OXIDE OINT 71 GM JAR TOP SCH ×2 (14:04→21:09)
[2020-02-09 17:51] LABS: Bilirubin,Urine Negative (Negative); Blood, Urine Small mg/dL (Negative); Glucose,Urine (UA) Negative (Negative); Ketones,Urine Negative (Negative); Nitrite,Urine Negative (Negative); Protein,Urine Negative; RBC,Urine 1 /HPF (0-4); Squamous Epithelial Cell,Urine Occasional /HPF (0-10); Urine Appearance CLEAR (Clear); Urine Color Colorless (Yellow); Urine Specific Gravity 1.002 (1.001-1.035); Urine Urobilinogen < 2.0 EU/DL (0.2-1.0); WBC,Urine 1 /HPF (0-6)
[2020-02-09] MEDS: FAMOTIDINE 20 MG TABLET PO SCH (21:08)
[2020-02-09] MEDS: INSULIN GLARGINE 100 UNIT/ML SUBCUT SCH (21:12)
[2020-02-10] MEDS: POTASSIUM CHLORIDE INJ 40 MEQ in SODIUM CHLORIDE 0.45% 1,000 ML IV SCH (05:46)
[2020-02-10] MEDS: LEVOTHYROXINE 100 MCG TABLET PO SCH (05:48)
[2020-02-10 06:24] LABS: Basophils # 0.1 10*3/uL (0.0-0.2); Basophils % 0.4 % (0.0-0.8); Eosinophils # 0.1 10*3/uL (0.0-0.87); Eosinophils % 0.3 % (0.00-10.9); Hematocrit 27.7 VOL% (35.7-47.0); Hemoglobin 9.3 GM/DL (12.0-16.0); Immature Granulocytes % 2.8 %; Immature Granulocytes Absolute 0.78 #; Lymphocytes # 2.1 10*3/uL (1.4-4.0); Lymphocytes % 7.3 % (21.3-54.2); Mean Corpuscular HGB Conc 33.6 GM/DL (32-36); Mean Corpuscular Volume 101.1 FL (87-102); Mean Platelet Volume 11.5 FL (9.6-12.0); Monocytes % 8.8 % (1.7-12.7); Neutrophils % 80.4 % (38.7-73.9); Platelet Count 493 T/CUMM (130-400); Red Blood Count 2.74 MC/CUMM (3.8-5.5); Red Cell Distribution Width 14.4 % (9.3-17.3); White Blood Count 28.2 T/CUMM (4-12)
[2020-02-10 06:51] LABS: Calcium 8.5 MG/DL (8.5-10.1); Osmolality,Calculated 270.8 MOS/KG (273-304)
[2020-02-10 06:54] LABS: Band Neutrophils 1 % (0-10); Eosinophils 1 % (0-10); Hypochromasia 1+; Lymphocytes 9 % (20-55); Microcytosis 1+; Platelet Estimate Adequate; Segmented Neutrophils 82 % (50-85); Total Cells Counted 100
[2020-02-10] MEDS: INSULIN REGULAR 100 UNIT/ML SUBCUT SCH ×2 (08:59→12:30)
[2020-02-10] MEDS: ASPIRIN EC 81 MG TABLET PO SCH (09:25)
[2020-02-10] MEDS: AMOXICILLIN 500 MG CAPSULE PO SCH ×2 (09:25→12:30)
[2020-02-10] MEDS: APIXABAN 5 MG TABLET PO SCH (09:26)
[2020-02-10] MEDS: oxyCODONE/ACETAMINOPHEN 5-325 MG TABLET PO PRN (09:26)
[2020-02-10] MEDS: MENTHOL/ZINC OXIDE OINT 71 GM JAR TOP SCH (09:27)
[2020-02-10] MEDS: POLYETHYLENE GLYCOL POWDER 17 GM PACK PO SCH (10:24)
[2020-02-10 11:39] VITALS: BP 89/49
== END 2020-02-10 15:10 | disposition home or self-care (01) | DRG 710 ==
LOC: N.ED 16:22 → SUATTDRO 02-02 03:05 → N.EDINP 02-02 03:05 → N.CC 02-02 04:30 → N.3E 02-04 14:11
PROVIDERS: ADMIT Family Medicine; ATTEND Internal Medicine

== ENCOUNTER 2020-07-10 09:11 | Observation (INO) ==
[2020-07-10] MEDS ORDERED: LORazepam 2 MG/1 ML VIAL ONE (10:26)
[2020-07-10 10:33] LABS: Bacteria,Urine Occasional /HPF (Few); Bilirubin,Urine Negative (Negative); Blood, Urine Negative (Negative); Glucose,Urine (UA) Negative (Negative); Ketones,Urine Negative (Negative); Mucus,Urine Occasional /LPF (Occasional); Nitrite,Urine Negative (Negative); Protein,Urine Negative; RBC,Urine 1 /HPF (0-4); Squamous Epithelial Cell,Urine Few /HPF (0-10); Urine Appearance CLEAR (Clear); Urine Color Yellow (Yellow); Urine Specific Gravity 1.005 (1.001-1.035); Urine Urobilinogen < 2.0 EU/DL (0.2-1.0); WBC,Urine 2 /HPF (0-6)
[2020-07-10] MEDS ORDERED: THIAMINE INJ 100 MG, FOLIC ACID INJ 1 MG, MAGNESIUM SULF INJ 2 GM, MULTIVITAMIN INJ 10 ... IV ONE (10:36)
[2020-07-10] MEDS ORDERED: DEXTROSE 50% 25 GM/50 ML SYRINGE IV ONE (10:41)
[2020-07-10] MEDS ORDERED: DEXTROSE 50% 25 GM/50 ML VIAL IV STA ×2 (10:44→12:27)
[2020-07-10 10:49] LABS: Basophils # 0.1 10*3/uL (0.0-0.2); Basophils % 0.8 % (0.0-0.8); Eosinophils % 0.2 % (0.00-10.9); Hematocrit 37.9 VOL% (35.7-47.0); Hemoglobin 12.7 GM/DL (12.0-16.0); Immature Granulocytes % 1.2 %; Lymphocytes # 1.4 10*3/uL (1.4-4.0); Lymphocytes % 16.5 % (21.3-54.2); Mean Corpuscular HGB Conc 33.5 GM/DL (32-36); Mean Corpuscular Volume 97.7 FL (87-102); Mean Platelet Volume 11.1 FL (9.6-12.0); Monocytes % 15.8 % (1.7-12.7); Neutrophils % 65.5 % (38.7-73.9); Platelet Count 132 T/CUMM (130-400); Red Blood Count 3.88 MC/CUMM (3.8-5.5); Red Cell Distribution Width 13.9 % (9.3-17.3); White Blood Count 8.4 T/CUMM (4-12)
[2020-07-10 10:56] LABS: Barbiturates Screen,Urine Negative (Negative); Benzodiazepines Screen,Urine Negative (Negative); Cannabinoid Screen,Urine Negative (Negative); Opiate Screen,Urine Negative (Negative); Phencyclidine Screen,Urine Negative (Negative)
[2020-07-10 11:07] LABS: Potassium 3.3 MMOL/L (3.5-5.1)
[2020-07-10 11:08] LABS: Osmolality,Calculated 263.8 MOS/KG (273-304)
[2020-07-10 11:12] LABS: Lymphocytes 20 % (20-55); Segmented Neutrophils 64 % (50-85); Total Cells Counted 100
[2020-07-10] MEDS ORDERED: LORazepam 2 MG/1 ML VIAL IV STA (11:12)
[2020-07-10 11:13] LABS: Hypochromasia 1+
[2020-07-10 11:14] LABS: Atypical Lymphocytes Few; Microcytosis 1+
[2020-07-10 11:15] LABS: Platelet Estimate Normal
[2020-07-10] MEDS ORDERED: DEXTROSE 5% NACL 0.45% 1,000 ML IV SCH (13:00)
[2020-07-10] MEDS ORDERED: DEXTROSE 50% 25 GM/50 ML VIAL IV PRN (13:07)
[2020-07-10] MEDS ORDERED: GLUCAGON 1 MG VIAL IM PRN (13:07)
[2020-07-10] MEDS ORDERED: hydrALAZINE 20 MG/1 ML VIAL IV PRN (13:07)
[2020-07-10] MEDS ORDERED: chlordiazePOXIDE 25 MG CAPSULE PO PRN (13:23)
[2020-07-10] MEDS ORDERED: POTASSIUM CHLORIDE 20 MEQ TABLET PO ONE (13:27)
[2020-07-10] MEDS ORDERED: MAGNESIUM SULF RIDER 2 GM in PREMIX 1 EACH IV ONE (13:28)
[2020-07-10] MEDS: NICOTINE 21 MG/24 HR PATCH TRANSDERM SCH (15:12)
[2020-07-10] MEDS: ENOXAPARIN 40 MG/0.4 ML SYRINGE SUBCUT SCH (17:56)
[2020-07-10] MEDS: DEXTROSE 10% 1,000 ML IV SCH (22:00)
[2020-07-10] MEDS: ONDANSETRON 4 MG/2 ML VIAL IV PRN (23:54)
[2020-07-11 05:35] LABS: Basophils % 0.5 % (0.0-0.8); Eosinophils # 0.1 10*3/uL (0.0-0.87); Eosinophils % 0.9 % (0.00-10.9); Hematocrit 34.5 VOL% (35.7-47.0); Hemoglobin 11.2 GM/DL (12.0-16.0); Immature Granulocytes % 0.9 %; Immature Granulocytes Absolute 0.07 #; Lymphocytes # 1.5 10*3/uL (1.4-4.0); Lymphocytes % 19.4 % (21.3-54.2); Mean Corpuscular HGB Conc 32.5 GM/DL (32-36); Mean Platelet Volume 11.2 FL (9.6-12.0); Monocytes % 15.9 % (1.7-12.7); Neutrophils % 62.4 % (38.7-73.9); Platelet Count 130 T/CUMM (130-400); Red Blood Count 3.45 MC/CUMM (3.8-5.5); White Blood Count 7.9 T/CUMM (4-12)
[2020-07-11 05:52] LABS: Calcium 7.7 MG/DL (8.5-10.1); Osmolality,Calculated 270.7 MOS/KG (273-304)
[2020-07-11 05:57] LABS: Lymphocytes 18 % (20-55); Segmented Neutrophils 73 % (50-85); Total Cells Counted 100
[2020-07-11 05:58] LABS: Hypochromasia Slight; Microcytosis 1+; Platelet Estimate Normal
[2020-07-11 06:01] LABS: Potassium 2.5 MMOL/L (3.5-5.1)
[2020-07-11] MEDS: POTASSIUM CHLORIDE 20 MEQ TABLET PO PRN ×3 (06:39→13:34)
[2020-07-11] MEDS ORDERED: POTASSIUM CHLORIDE RIDER 10 MEQ in PREMIX 1 EACH IV PRN (07:46)
[2020-07-11] MEDS: ONDANSETRON 4 MG/2 ML VIAL IV PRN (08:26)
[2020-07-11] MEDS: FOLIC ACID 1 MG TABLET PO SCH (08:27)
[2020-07-11] MEDS: MULTIVITAMIN (CENTRUM) TABLET PO SCH (08:27)
[2020-07-11] MEDS: DEXTROSE 10% 1,000 ML IV SCH ×2 (08:27→22:18)
[2020-07-11] MEDS: PANTOPRAZOLE 40 MG TABLET PO SCH (08:27)
[2020-07-11] MEDS: THIAMINE 100 MG TABLET PO SCH (08:27)
[2020-07-11] MEDS: NICOTINE 21 MG/24 HR PATCH TRANSDERM SCH (08:27)
[2020-07-11] MEDS: ENOXAPARIN 40 MG/0.4 ML SYRINGE SUBCUT SCH (13:35)
[2020-07-12] MEDS: DEXTROSE 10% 1,000 ML IV SCH (04:08)
[2020-07-12 05:24] LABS: Basophils # 0.1 10*3/uL (0.0-0.2); Basophils % 0.9 % (0.0-0.8); Eosinophils # 0.1 10*3/uL (0.0-0.87); Eosinophils % 1.1 % (0.00-10.9); Hematocrit 32.7 VOL% (35.7-47.0); Hemoglobin 10.8 GM/DL (12.0-16.0); Immature Granulocytes % 1.3 %; Immature Granulocytes Absolute 0.08 #; Lymphocytes # 1.7 10*3/uL (1.4-4.0); Mean Corpuscular Volume 98.5 FL (87-102); Mean Platelet Volume 11.4 FL (9.6-12.0); Monocytes % 13.9 % (1.7-12.7); Neutrophils % 55.8 % (38.7-73.9); Platelet Count 124 T/CUMM (130-400); Red Blood Count 3.32 MC/CUMM (3.8-5.5); Red Cell Distribution Width 13.7 % (9.3-17.3); White Blood Count 6.4 T/CUMM (4-12)
[2020-07-12 05:35] LABS: Calcium 8.2 MG/DL (8.5-10.1); Osmolality,Calculated 271.4 MOS/KG (273-304); Potassium 3.5 MMOL/L (3.5-5.1)
[2020-07-12 05:49] LABS: Atypical Lymphocytes Few; Eosinophils 4 % (0-10); Hypochromasia 1+; Lymphocytes 26 % (20-55); Microcytosis 1+; Platelet Estimate Normal; Segmented Neutrophils 53 % (50-85); Total Cells Counted 100
[2020-07-12] MEDS: FOLIC ACID 1 MG TABLET PO SCH (08:29)
[2020-07-12] MEDS: POTASSIUM CHLORIDE 20 MEQ TABLET PO PRN (08:29)
[2020-07-12] MEDS: MULTIVITAMIN (CENTRUM) TABLET PO SCH (08:29)
[2020-07-12] MEDS: THIAMINE 100 MG TABLET PO SCH (08:29)
[2020-07-12] MEDS: PANTOPRAZOLE 40 MG TABLET PO SCH (08:29)
[2020-07-12] MEDS: NICOTINE 21 MG/24 HR PATCH TRANSDERM SCH (08:29)
[2020-07-12] MEDS ORDERED: MAGNESIUM SULF RIDER 2 GM in PREMIX 1 EACH IV PRN (08:37)
[2020-07-12] MEDS ORDERED: MAGNESIUM SULF RIDER 4 GM in PREMIX 1 EACH IV PRN (08:37)
[2020-07-12 09:13] LABS: Albumin 2.3 G/DL (3.4-5.0); Bilirubin,Direct 0.37 MG/DL (0.0-0.20); Bilirubin,Indirect 0.3 MG/DL (0.0-1.0); Bilirubin,Total 0.7 MG/DL (0.2-1.0); Total Protein 6.6 G/DL (6.4-8.2)
[2020-07-12] MEDS: ENOXAPARIN 40 MG/0.4 ML SYRINGE SUBCUT SCH (18:59)
[2020-07-13 05:29] LABS: Basophils # 0.1 10*3/uL (0.0-0.2); Basophils % 1.1 % (0.0-0.8); Eosinophils # 0.1 10*3/uL (0.0-0.87); Eosinophils % 1.4 % (0.00-10.9); Hematocrit 34.7 VOL% (35.7-47.0); Hemoglobin 11.9 GM/DL (12.0-16.0); Immature Granulocytes % 0.9 %; Immature Granulocytes Absolute 0.06 #; Lymphocytes # 1.6 10*3/uL (1.4-4.0); Lymphocytes % 23.5 % (21.3-54.2); Mean Corpuscular HGB Conc 34.3 GM/DL (32-36); Mean Corpuscular Volume 96.7 FL (87-102); Monocytes % 16.8 % (1.7-12.7); Neutrophils % 56.3 % (38.7-73.9); Platelet Count 146 T/CUMM (130-400); Red Blood Count 3.59 MC/CUMM (3.8-5.5); Red Cell Distribution Width 13.4 % (9.3-17.3)
[2020-07-13 06:01] LABS: Albumin 2.4 G/DL (3.4-5.0); Bilirubin,Direct 0.42 MG/DL (0.0-0.20); Bilirubin,Indirect 0.9 MG/DL (0.0-1.0); Bilirubin,Total 1.3 MG/DL (0.2-1.0); Osmolality,Calculated 266.5 MOS/KG (273-304); Potassium 4.1 MMOL/L (3.5-5.1)
[2020-07-13 06:04] LABS: Eosinophils 1 % (0-10); Hypochromasia 1+; Lymphocytes 19 % (20-55); Segmented Neutrophils 68 % (50-85); Total Cells Counted 100
[2020-07-13 06:05] LABS: Microcytosis 1+; Platelet Estimate Adequate; Target Cells Slight
[2020-07-13] MEDS ORDERED: GLUCAGON 1 MG VIAL IM PRN (07:32)
[2020-07-13] MEDS ORDERED: DEXTROSE 50% 25 GM/50 ML VIAL IV PRN (07:32)
[2020-07-13] MEDS ORDERED: LEVOTHYROXINE 100 MCG TABLET PO SCH (09:00)
[2020-07-13] MEDS: MULTIVITAMIN (CENTRUM) TABLET PO SCH (10:12)
[2020-07-13] MEDS: metFORMIN 500 MG TABLET PO SCH ×2 (10:12→16:30)
[2020-07-13] MEDS: PANTOPRAZOLE 40 MG TABLET PO SCH (10:13)
[2020-07-13] MEDS: FOLIC ACID 1 MG TABLET PO SCH (10:13)
[2020-07-13] MEDS: THIAMINE 100 MG TABLET PO SCH (10:13)
[2020-07-13] MEDS: NICOTINE 21 MG/24 HR PATCH TRANSDERM SCH (10:14)
[2020-07-13 12:07] VITALS: BP 123/88
[2020-07-13] MEDS: INSULIN LISPRO 100 UNIT/ML SUBCUT SCH ×2 (12:56→16:30)
[2020-07-13] MEDS: ENOXAPARIN 40 MG/0.4 ML SYRINGE SUBCUT SCH (15:05)
== END 2020-07-13 18:05 | disposition home or self-care (01) ==
LOC: N.ED 09:11 → N.EDINP 09:11 → N.4E 14:34
PROVIDERS: ADMIT Internal Medicine; ATTEND Internal Medicine